=== PATIENT | male | born 1985 | race Asian ===

== ENCOUNTER 2019-10-08 00:23 | Emergency (ER) | payer BC ==
[~2019-10-08] VITALS: Ht 182.9 cm; Wt 85.7 kg
[2019-10-08 00:40] VITALS: Ht 182.9 cm; Wt 85.7 kg
[2019-10-08 01:21] LABS: UA SPECIFIC GRAVITY 1.015 (1.005-1.035); microscopic required? YES; urine erythrocyte 3+ (NEGATIVE)
[2019-10-08 02:44] VITALS: BP 131/73
== END 2019-10-08 02:20 | disposition home or self-care (01) ==
LOC: ED 00:23
PROVIDERS: Emergency Medicine
DX: N23 Unspecified renal colic (principal); N20.0 Calculus of kidney; I10 Essential (primary) hypertension; E11.9 Type 2 diabetes mellitus without complications
CPT/HCPCS: J1885